=== PATIENT | male | born 2000 | race Caucasian/White ===

== ENCOUNTER 2024-12-24 15:41 | Emergency (ER) | payer MEDICARE, OTHER ==
[~2024-12-24] VITALS: Ht 182.9 cm; Wt 85.9 kg
[2024-12-24 17:01] LABS: BASOPHILS 0.5 % (0.2-1.2); EOSINOPHILS 0.3 % (0.8-7.0); LYMPHOCYTES 19.7 % (21.8-53.1); MCH 30.4 PG (25.7-32.2); MCHC 33.1 g/dL (32.3-36.5); MCV 92.0 fL (79.0-92.2); MONOCYTES 11.1 % (5.3-12.2); NEUTROPHILS 68.1 % (34.0-67.9); RBC 4.27 M/uL (4.63-6.08)
[2024-12-24 17:25] LABS: ALCOHOL, MEDICAL <3 ng/dL (<3); ALT (SGPT) 67 U/L (14-59); AST (SGOT) 53 U/L (15-37); GLOMERULAR FILTRATION RATE,EST 123 mL/min (>60); PROTEIN, TOTAL 7.8 g/dL (6.4-8.2); TSH, 3RD GENERATION 0.805 uIU/mL (0.358-3.740); UREA NITROGEN 15 mg/dL (7-18)
[2024-12-24 17:43] LABS: BLOOD/HGB, URINE NEGATIVE (Negative); KETONE, URINE >=80 (Negative); LEUK ESTERASE, URINE NEGATIVE (negative); NITRITE, URINE NEGATIVE (negative)
[2024-12-24 18:00] LABS: AMPHETAMINES, URINE NEGATIVE (NEGATIVE); BARBITURATES, URINE NEGATIVE (NEGATIVE); BENZODIAZEPINE, URINE NEGATIVE (NEGATIVE); CANNABINOID, URINE POSITIVE (NEGATIVE); COCAINE, URINE NEGATIVE (NEGATIVE); ECSTASY, URINE NEGATIVE (NEGATIVE); FENTANYL, URINE NEGATIVE (NEGATIVE); METHADONE, URINE NEGATIVE (NEGATIVE); OPIATES, URINE NEGATIVE (NEGATIVE); OXYCODONE, URINE NEGATIVE (NEGATIVE); PHENCYCLIDINE, URINE NEGATIVE (NEGATIVE)
[2024-12-24] MEDS ORDERED: OLANZapine 10 MG TABDIS PO ONE (18:15)
[2024-12-24] MEDS ORDERED: LORazepam 1 MG TAB PO ONE (18:15)
[2024-12-24] MEDS ORDERED: DIVALPROEX SOD500 M1 PO (18:35)
[2024-12-24] MEDS ORDERED: GUANFACINE HCL E1 MG PO (18:36)
[2024-12-24] MEDS ORDERED: INVEGA6 MG PO (18:36)
[2024-12-24] MEDS ORDERED: CETIRIZINE HCL10 MG PO (18:37)
[2024-12-24] MEDS ORDERED: MELATONIN3 MG PO (18:37)
[2024-12-24] MEDS ORDERED: HALOPERIDOL LACTATE 5 MG/ML VIAL IM ONE (19:00)
[2024-12-24] MEDS ORDERED: LORazepam 2 MG/ML VIAL IM ONE (19:15)
[2024-12-24] MEDS ORDERED: OLANZapine 10 MG VIAL IM ONE (20:15)
[2024-12-25] MEDS ORDERED: AZITHROMYCIN 500 MG in DEXTROSE 5% 250 ML IV SCH (19:26)
[2024-12-25] MEDS ORDERED: ACETAMINOPHEN 325 MG TAB PO PRN (19:30)
[2024-12-25] MEDS ORDERED: ALBUTEROL/IPRATROPIUM 3 ML NEB INH SCH (20:00)
[2024-12-25] MEDS ORDERED: DIVALPROEX SODIUM 500 MG TABLET.DR PO SCH (21:00)
[2024-12-25] MEDS ORDERED: OLANZapine 10 MG TAB PO SCH (21:00)
[2024-12-25] MEDS ORDERED: GUANFACINE HCL 1 MG TAB PO SCH (21:00)
[2024-12-26] MEDS ORDERED: predniSONE 20 MG TAB PO SCH (09:00)
[2024-12-26] MEDS ORDERED: PHARMACY RENAL DOSE ADJUSTMENT 1 DOSE MISC PO SCH (12:00)
[2024-12-26] MEDS ORDERED: ED PATIENT'S OWN MED POCKET #1 XX PRN (14:00)
[2024-12-26] MEDS ORDERED: NICOTINE POLACRILEX 2 MG GUM MM PRN (15:00)
[2024-12-26] MEDS ORDERED: PATIENT'S OWN MEDICATION(S) ORDER PO SCH ×2 (21:00)
[2024-12-26] MEDS ORDERED: PALIPERIDONE 6 MG TAB.ER.24 PO SCH (21:00)
[2024-12-26] MEDS ORDERED: DIVALPROEX SODIUM 500 MG TAB.ER.24H PO SCH (21:00)
[2024-12-27 10:14] VITALS: BP 124/65
== END 2024-12-27 10:16 | disposition home or self-care (01) ==
LOC: ED 15:41
PROVIDERS: Emergency Medicine
DX: F20.9 Schizophrenia, unspecified (principal); Z79.899 Other long term (current) drug therapy
CPT/HCPCS: 36415; 80053; 80307; 81003; 84443; 85025; 96372; 99285; A9270; A9270-GY; G0480; J1200; J1630; J2060